=== PATIENT | female | born 1955 | race Caucasian/White ===

== ENCOUNTER → 2016-11-29 | Outpatient (CLI) | payer BC ==
[2016-11-08 13:38] VITALS: BP 135/81
[~2016-11-29] MED LIST: ASPI-482 PO; BUTA1CAP29 PO; CALC-274 PO; CEPH-263 PO; CLOP75TA27 PO; CONTRAST GIVEN MC PRN; DOCU-27 PO; FLUO40CA9 PO; GEMF600T PO; HYDR-2762 PO; HYDR-963 PO; IOHEXOL 240 MG/ML 50ML VIAL. PO ONE; IOHEXOL 300 MG/ML 75 ML VIAL IV ONE; IPRA4AER IH; METH-38 PO; OMEP20CA5 PO; OXYB10TA PO; PRAV10TA2 PO; TRAZ150T55 PO
--- NOTE | 2016-11-29 12:30 | RAD ---
Indication antiphospholipid antibody syndrome. Contrast imaging through the chest abdomen and pelvis was performed. Both IV and oral contrast were administered. 75 cc of Omnipaque 300 was administered intravenously.. No prior CT imaging of the chest is available. The abdomen and pelvis are compared to an examination 05/24/2011. CT chest: Findings The thoracic aorta appears unremarkable. No definite large central pulmonary emboli are seen. There is no significant hilar or mediastinal adenopathy. There is a nodule off the isthmus of the thyroid. Nonemergent ultrasound is suggested for additional evaluation. An acute parenchymal infiltrate in either lung is not seen. Underlying emphysematous changes are noted. A dominant soft tissue mass is not seen CT abdomen and pelvis: Findings. The liver and spleen appear unremarkable. Clips are noted in the gallbladder fossa. The pancreas adrenal glands and kidneys appear unremarkable. A focal mass or inflammatory process in the abdomen is not seen. No focal mass inflammatory process or significant finding is seen in the pelvis. IMPRESSION: No acute finding seen in the chest, abdomen or pelvis. Underlying emphysematous changes noted. Thyroid nodule. Nonemergent ultrasound should be considered for additional evaluation PQRS Compliance Statement: One or more of the following individualized dose reduction techniques were utilized for this examination: 1. Automated exposure control 2. Adjustment of the mA and/or kV according to patient size 3. Use of iterative reconstruction technique
== END | disposition home or self-care (01) ==
LOC: CT 09:52
PROVIDERS: ATTEND Internal Medicine Hematology & Oncology
DX: D68.61 Antiphospholipid syndrome (principal); E04.1 Nontoxic single thyroid nodule; R05 Cough; R06.02 Shortness of breath; R10.30 Lower abdominal pain, unspecified; R53.83 Other fatigue; R07.89 Other chest pain; J43.8 Other emphysema
CPT/HCPCS: 71260; 74177; Q9966; Q9967

== ENCOUNTER → 2017-02-21 | Outpatient (CLI) | payer BC ==
[2016-11-08 13:38] VITALS: BP 135/81
[~2017-02-21] MED LIST changes: -CONTRAST GIVEN MC PRN; -IOHEXOL 240 MG/ML 50ML VIAL. PO ONE; -IOHEXOL 300 MG/ML 75 ML VIAL IV ONE
--- NOTE | 2017-02-21 13:16 | RAD ---
Cervical spine, 2 views, 02/21/2017: History: Cervical radiculopathy There is a surgical plate present anteriorly at the C5-6 level attached to those 2 vertebral bodies via 2 screws at each level. There is a radiopaque disc spacer at the C5-6 level. The vertebral alignment through this region appears to be anatomic. There are moderate scattered spurs. There are moderate degenerative changes involving scattered facet joints bilaterally. No fracture or destructive bony lesion is seen. IMPRESSION: 1. Moderate multilevel degenerative change. 2. Previous anterior spinal fusion and instrumentation at C5-6. 3. No acute bony abnormality is detected.
--- NOTE | 2017-02-21 14:21 | RAD ---
MR CERVICAL SPINE HISTORY:NECK PAIN WITH RIGHT SHOULDER PAIN X 5 MONTHS, HX OF CERVICAL FUSION, PRIOR MRIReason: L SHOULDER MRI ARTHRO/L SHOULDER IMPINGEMENT / Spl. Instructions: / History: Comparison: 12/20/2011 Technique: Sagittal T2, sagittal STIR, sagittal T1, and axial gradient echo imaging was obtained of the cervical spine. FINDINGS: There has been ACDF at C5-C6. Alignment and curvature are within normal limits. Cord is normal in caliber with no signal abnormality identified. Vertebral body heights are maintained. Bone marrow signal is normal. Visualized soft tissues of the neck demonstrates a incompletely evaluated left thyroid mass that measures at least 1.8 centimeters in size. At C2-3 there is no spinal stenosis. At C3-4 there is no spinal stenosis. At C4-5 there is no spinal stenosis. At C5-6 there is anterior fusion. There is no spinal stenosis. At C6-7 there is no spinal stenosis. At C7-T1 there is no spinal stenosis. Impression: - ACDF C5-C6 with normal alignment. There is no cord signal abnormality or canal stenosis. - There is a 1.8 centimeter left thyroid mass. Thyroid ultrasound is recommended. Electronically signed by: Nahum Dan (Feb 21, 2017 14:19:53)
== END | disposition home or self-care (01) ==
LOC: MRI 12:34
PROVIDERS: ATTEND Neurological Surgery
DX: M47.22 Other spondylosis with radiculopathy, cervical region (principal); M75.42 Impingement syndrome of left shoulder
CPT/HCPCS: 72040; 72141

== ENCOUNTER → 2017-07-16 | Outpatient (CLI) | payer BC ==
[2016-11-08 13:38] VITALS: BP 135/81
[~2017-07-16] MED LIST changes: -CLOP75TA27 PO; +CLOP75TA57 PO; +DOCU-109 PO; -DOCU-27 PO; +TRAZ150T49 PO; -TRAZ150T55 PO
--- NOTE | 2017-07-16 14:10 | KCIC ---
SHOULDER 2+V RIGHT History: Repetitive use, pain for 4 weeks, loss of range of motion Comparison: None. Findings: 3 views of the right shoulder are submitted. No acute fracture or dislocation is identified. Mineralization is appropriate for age Impression: 1. No acute osseous abnormality is identified of the right shoulder. Electronically signed by: Jackson Steel MD (07/16/2017 2:06 PM) [id number]
== END | disposition home or self-care (01) ==
LOC: KCIC 12:32
PROVIDERS: ATTEND Internal Medicine
DX: M25.511 Pain in right shoulder (principal)
CPT/HCPCS: 73030

== ENCOUNTER → 2017-08-01 | Day surgery (SDC) | payer BC ==
[~2017-08-01] MED LIST changes: +ALEN70TA5 PO; +ALPR0.254 PO; +HYDROmorphone 2 MG/ML VIAL IV PRN; +IV RINGERS,LACTATED 1000ML 1,000 ML IV SCH; +LEXAPRO20 MG PO; +LIDOCAINE 1% PF 2 ML VIAL. ID PRN; +LIDOCAINE 2% PF Vial for OR 5 ML VIAL. ONE; +MORPHINE SULFATE 2 MG/ML DISP.SYRIN. IV PRN; +ONDA4TAB10 SL; +ONDANSETRON PF 4 MG/2 ML VIAL. IV PRN; +PROCHLORPERAZINE 10 MG/2 ML VIAL. IV PRN; +PROPOFOL 20 ML IV ONE; +fentaNYL PF VIAL 100 MCG/2 ML VIAL IV PRN
[2017-08-01 08:25] VITALS: BP 138/79
--- NOTE | 2017-08-01 09:41 | HP ---
ADMIT DATE: 08/01/2017 REASON FOR CONSULTATION: Recurrent dysphagia. HISTORY OF PRESENT ILLNESS: A 62-year-old female whose past medical history is significant for hyperlipidemia, history of colon polyps, gastroesophageal reflux disease, hypertension, COPD, history of TIA with the same recurrent dysphagia for mainly solids in the subcervical location. She is, of note, taking Fosamax weekly and is also on Plavix, which has been held for the past 48 hours, but no change in weight or appetite. No significant heartburn. She is otherwise without additional complaints, with previous dilatations having helped in the past. PAST MEDICAL HISTORY: TIA, COPD, hyperlipidemia, esophageal stricture. ALLERGIES: PENICILLIN, TETRACYCLINE, CODEINE. MEDICATIONS: Include Fosamax, Keflex, Plavix, Lexapro, Combivent, oxybutynin, pravastatin and trazodone. PAST SURGICAL HISTORY: Status post appendectomy, cholecystectomy, hysterectomy, tonsillectomy, joint replacement surgery and carpal tunnel surgery. REVIEW OF SYSTEMS: Per records. PHYSICAL EXAMINATION: GENERAL: Reveals a well-nourished, well-developed female who is alert, cooperative, in mild distress. VITAL SIGNS: Temperature is 98.4, pulse 86, respirations 20. HEENT: Reveals normocephalic and atraumatic head. Pupils and extraocular muscles not tested. Sclerae anicteric. NECK: Supple. LUNGS: Clear. CARDIOVASCULAR: Reveals an S1, S2 without S3, S4 or appreciable murmur. ABDOMEN: Soft abdomen, normal bowel sounds, without appreciable hepatosplenomegaly. EXTREMITIES: Reveals no cyanosis, clubbing or edema. IMPRESSION: Dysphagia, most likely secondary to recurrent Schatzki's ring, eosinophilic esophagitis, achalasia, presbyesophagus Dorsey's certainly on the differential as well as eosinophilic esophagitis. Therefore, recommend upper endoscopy, possible biopsy and dilatation. Risks and benefits of procedure including risk of perforation were discussed with the patient who is willing to proceed at this time. AURA BROWN MD DR: MARYJO/vu JOB#: [id number] / [id number]
== END | disposition home or self-care (01) ==
LOC: ENDOS 06:32
PROVIDERS: ATTEND Internal Medicine Gastroenterology
DX: K22.2 Esophageal obstruction (principal); K29.50 Unspecified chronic gastritis without bleeding; E78.00 Pure hypercholesterolemia, unspecified; I10 Essential (primary) hypertension; J44.9 Chronic obstructive pulmonary disease, unspecified; K21.9 Gastro-esophageal reflux disease without esophagitis; F32.9 Major depressive disorder, single episode, unspecified; M19.91 Primary osteoarthritis, unspecified site; Z86.39 Personal history of other endocrine, nutritional and metabolic disease; Z86.69 Personal history of other diseases of the nervous system and sense organs; Z86.73 Personal history of transient ischemic attack (TIA), and cerebral infarction without residual deficits; Z87.39 Personal history of other diseases of the musculoskeletal system and connective tissue; Z90.49 Acquired absence of other specified parts of digestive tract; Z90.710 Acquired absence of both cervix and uterus; Z96.698 Presence of other orthopedic joint implants; Z72.89 Other problems related to lifestyle; Z72.0 Tobacco use; Z88.6 Allergy status to analgesic agent; Z88.1 Allergy status to other antibiotic agents; Z88.0 Allergy status to penicillin; Z88.8 Allergy status to other drugs, medicaments and biological substances
CPT/HCPCS: 43235; 43450; J2704; J2001

== ENCOUNTER → 2017-09-08 | Outpatient (CLI) | payer BC ==
[2017-08-01 08:25] VITALS: BP 138/79
[~2017-09-08] MED LIST changes: -HYDROmorphone 2 MG/ML VIAL IV PRN; -IV RINGERS,LACTATED 1000ML 1,000 ML IV SCH; -LIDOCAINE 1% PF 2 ML VIAL. ID PRN; -LIDOCAINE 2% PF Vial for OR 5 ML VIAL. ONE; -MORPHINE SULFATE 2 MG/ML DISP.SYRIN. IV PRN; -ONDA4TAB10 SL; -ONDANSETRON PF 4 MG/2 ML VIAL. IV PRN; -PROCHLORPERAZINE 10 MG/2 ML VIAL. IV PRN; -PROPOFOL 20 ML IV ONE; -fentaNYL PF VIAL 100 MCG/2 ML VIAL IV PRN
--- NOTE | 2017-09-08 16:08 | KCIC ---
MR of the right shoulder Indication: Right shoulder pain. No specific injury. Technique: Standard multiplanar sequences are obtained. Findings: Acromioclavicular joint: Mildly degenerative. No significant undersurface mass effect. Rotator cuff: Mild thickening and increased signal compatible with tendinosis. No measurable rotator cuff defect or tear. No significant subdeltoid bursal fluid. Glenohumeral cartilage: Mild chondromalacia and degenerative change. Fluid: Small joint effusion. Labrum: Tear of the superior labrum. Biceps tendon: Tendinosis. Bones: No lesion or acute fracture. Soft tissue: No acute findings. Impression: 1. Superior labral tear. 2. Rotator cuff tendinosis without measurable rotator cuff tear. 3. Small joint effusion. Electronically signed by: Cipriano Mena MD (09/08/2017 4:05 PM) [facility]
== END | disposition home or self-care (01) ==
LOC: KCIC MRI 14:35
PROVIDERS: ATTEND Orthopaedic Surgery
DX: S43.439A Superior glenoid labrum lesion of unspecified shoulder, initial encounter (principal); M25.40 Effusion, unspecified joint
CPT/HCPCS: 73221

== ENCOUNTER 2017-11-04 12:09 | Emergency (ER) | payer BC ==
[2017-11-04 13:41] LABS: ADD MAN DIFF? NO
[2017-11-04 13:44] LABS: BASO # 0.1 x10^3/uL (0.0-0.2); BASO % 1 % (0-3); EOS % 1 % (0-3); HEMOGLOBIN 14.6 g/dL (12.0-15.5); LYMPH # 1.7 x10^3/uL (1.0-4.8); LYMPH % 27 % (24-48); MEAN CORPUSCULAR HEMOGLOBIN 27 pg (25-35); MEAN CORPUSCULAR HGB CONC 33 g/dL (31-37); MEAN CORPUSCULAR VOLUME 83 fL (79-100); MONO % 8 % (0-9); NEUT % 63 % (31-73); PLATELET COUNT 186 x10^3/uL (140-400); RED BLOOD COUNT 5.33 x10^6/uL (3.50-5.40); RED CELL DISTRIBUTION WIDTH 15.1 % (11.5-14.5); WHITE BLOOD COUNT 6.3 x10^3/uL (4.0-11.0)
[2017-11-04] MEDS: ONDANSETRON PF 4 MG/2 ML VIAL. IV (13:44)
[2017-11-04] MEDS: ACETAMINOPHEN 500 MG TABLET PO (13:44)
[2017-11-04] MEDS: IV NORMAL SALINE 1000ML BAG 1,000 ML IV (13:48)
[2017-11-04] MEDS: fentaNYL PF VIAL 100 MCG/2 ML VIAL IV (13:49)
[2017-11-04 14:02] LABS: INR 1.1 (0.8-1.1); PROTHROMBIN TIME PATIENT 13.3 SEC (11.7-14.0)
[2017-11-04 14:24] LABS: ANION GAP 11 (6-14); BLOOD UREA NITROGEN 15 mg/dL (7-20); CALCIUM 8.4 mg/dL (8.5-10.1); CARBON DIOXIDE 26 mmol/L (21-32); CHLORIDE 106 mmol/L (98-107); CREATININE 0.7 mg/dL (0.6-1.0); GFR 85.1; GLUCOSE 95 mg/dL (70-99); POTASSIUM 3.6 mmol/L (3.5-5.1); SODIUM 143 mmol/L (136-145)
[2017-11-04 14:30] LABS: ALK PHOS 49 U/L (46-116); ALT (SGPT) 22 U/L (14-59); AST (SGOT) 19 U/L (15-37); DIRECT BILIRUBIN 0.1 mg/dL (0.0-0.2); MAGNESIUM 1.6 mg/dL (1.8-2.4); TOTAL BILIRUBIN 0.3 mg/dL (0.2-1.0); TOTAL PROTEIN 6.4 g/dL (6.4-8.2)
[2017-11-04 14:33] LABS: TROPONINI < 0.017 ng/mL (0.000-0.055)
[2017-11-04 14:40] LABS: CKMB INDEX 1.5 % (0-4); CKMB MASS 1.9 ng/mL (0.0-3.6); CREATINE KINASE 129 U/L (26-192)
[2017-11-04 14:40] LABS: NT-PRO BNP 166 pg/mL (0-124)
[2017-11-04 15:53] LABS: BILIRUBIN,URINE NEGATIVE (NEG); GLUCOSE,URINE NEGATIVE (NEG); NITRITE,URINE NEGATIVE (NEG); PROTEIN,URINE NEGATIVE (NEG-TRACE)
[2017-11-04 15:55] LABS: BARBITURATES NEG (NEG); BENZODIAZEPINES NEG (NEG); CANNABINOIDS NEG (NEG); COCAINE NEG (NEG); METHADONE NEG (NEG); OPIATES NEG (NEG); PHENCYCLIDINE NEG (NEG)
[2017-11-04 16:01] LABS: ETHANOL, URINE NEG (NEG)
[2017-11-04 16:02] LABS: RBC,URINE OCC /HPF (0-2)
[2017-11-04 16:03] LABS: BACTERIA,URINE 0 /HPF (0-FEW); SQUAMOUS EPITHELIAL CELL,UR FEW /LPF; WBC,URINE 0 /HPF (0-4)
== END 2017-11-04 16:51 | disposition home or self-care (01) ==
LOC: ER 16:51
DX: R11.2 Nausea with vomiting, unspecified (principal); R09.81 Nasal congestion; R50.9 Fever, unspecified; M79.1 Myalgia; E78.00 Pure hypercholesterolemia, unspecified; M81.0 Age-related osteoporosis without current pathological fracture; G89.29 Other chronic pain; Z90.710 Acquired absence of both cervix and uterus; Z88.0 Allergy status to penicillin; Z86.73 Personal history of transient ischemic attack (TIA), and cerebral infarction without residual deficits; Z88.1 Allergy status to other antibiotic agents; Z88.5 Allergy status to narcotic agent
CPT/HCPCS: 36415; 80048; 80076; 80307; 81001; 82553; 83690; 83735; 83880; 84484; 85025; 85610; 93005; 96361; 96374; 96375; 99285-25; J2405; J3010; J7030

== ENCOUNTER → 2017-12-17 | Outpatient (CLI) | payer BC | END | disposition home or self-care (01) | LOC: KCIC MAMMO 10:49 | DX: Z12.31 Encounter for screening mammogram for malignant neoplasm of breast (principal); Z13.820 Encounter for screening for osteoporosis; M85.88 Other specified disorders of bone density and structure, other site; M81.0 Age-related osteoporosis without current pathological fracture; Z78.0 Asymptomatic menopausal state | CPT/HCPCS: 77063; 77067; 77080 ==

== ENCOUNTER → 2018-01-14 | Outpatient (CLI) | payer BC | END | disposition home or self-care (01) | LOC: KCIC US 13:44 | DX: I65.29 Occlusion and stenosis of unspecified carotid artery (principal); Z86.73 Personal history of transient ischemic attack (TIA), and cerebral infarction without residual deficits | CPT/HCPCS: 93880 ==

== ENCOUNTER → 2018-03-04 | Outpatient (CLI) | payer BC | END | disposition home or self-care (01) | LOC: KCIC MRI 08:35 | DX: M51.16 Intervertebral disc disorders with radiculopathy, lumbar region (principal); M48.061 Spinal stenosis, lumbar region without neurogenic claudication; I10 Essential (primary) hypertension; E78.00 Pure hypercholesterolemia, unspecified | CPT/HCPCS: 72148 ==

== ENCOUNTER → 2018-05-05 | Outpatient (CLI) | payer BC ==
[~2018-05-05] MED LIST changes: -ALEN70TA5 PO; -ALPR0.254 PO; -ASPI-482 PO; -BUTA1CAP29 PO; -CALC-274 PO; -CEPH-263 PO; -CLOP75TA57 PO; -DOCU-109 PO; -FLUO40CA9 PO; -GEMF600T PO; -HYDR-2762 PO; -HYDR-963 PO; +IOHEXOL 180 MG/ML 10 ML VIAL.; -IPRA4AER IH; -LEXAPRO20 MG PO; +LIDOCAINE 1% PF 2 ML VIAL.; -METH-38 PO; -OMEP20CA5 PO; -OXYB10TA PO; -PRAV10TA2 PO; -TRAZ150T49 PO; +methylPREDNISolone ACETATE 40 MG/ML VIAL.; +methylPREDNISolone ACETATE 80 MG/ML VIAL.
== END | disposition home or self-care (01) ==
LOC: PNCL 13:02
DX: M51.16 Intervertebral disc disorders with radiculopathy, lumbar region (principal); F17.210 Nicotine dependence, cigarettes, uncomplicated; J44.9 Chronic obstructive pulmonary disease, unspecified; M19.90 Unspecified osteoarthritis, unspecified site; M48.061 Spinal stenosis, lumbar region without neurogenic claudication; Z88.0 Allergy status to penicillin; Z88.5 Allergy status to narcotic agent; Z88.1 Allergy status to other antibiotic agents
CPT/HCPCS: 62323; J1030; J1040; Q9965

== ENCOUNTER → 2018-05-26 | Outpatient (CLI) | payer BC | END | disposition home or self-care (01) | LOC: PNCL 13:17 | DX: M51.16 Intervertebral disc disorders with radiculopathy, lumbar region (principal); M48.061 Spinal stenosis, lumbar region without neurogenic claudication; Z88.0 Allergy status to penicillin; Z88.1 Allergy status to other antibiotic agents; Z88.5 Allergy status to narcotic agent; Z98.42 Cataract extraction status, left eye; Z98.41 Cataract extraction status, right eye; Z96.1 Presence of intraocular lens; Z98.890 Other specified postprocedural states; Z86.73 Personal history of transient ischemic attack (TIA), and cerebral infarction without residual deficits; E78.00 Pure hypercholesterolemia, unspecified; I10 Essential (primary) hypertension; J44.9 Chronic obstructive pulmonary disease, unspecified; Z87.01 Personal history of pneumonia (recurrent); Z86.010 Personal history of colon polyps; Z90.49 Acquired absence of other specified parts of digestive tract; K21.9 Gastro-esophageal reflux disease without esophagitis; Z90.710 Acquired absence of both cervix and uterus; Z90.79 Acquired absence of other genital organ(s); Z90.721 Acquired absence of ovaries, unilateral; M85.80 Other specified disorders of bone density and structure, unspecified site; Z96.693 Finger-joint replacement, bilateral; F32.9 Major depressive disorder, single episode, unspecified; F19.10 Other psychoactive substance abuse, uncomplicated; Z72.89 Other problems related to lifestyle; Z85.21 Personal history of malignant neoplasm of larynx; F17.210 Nicotine dependence, cigarettes, uncomplicated; M19.90 Unspecified osteoarthritis, unspecified site | CPT/HCPCS: 62323; J1030; J1040; Q9965 ==

== ENCOUNTER → 2018-05-27 | Day surgery (SDC) | payer BC ==
[~2018-05-27] MED LIST changes: -IOHEXOL 180 MG/ML 10 ML VIAL.; -LIDOCAINE 1% PF 2 ML VIAL.; +LIDOCAINE 1% PF 2 ML VIAL. ID; +LIDOCAINE 2% PF Vial for OR 5 ML VIAL.; +MORPHINE SULFATE 2 MG/ML DISP.SYRIN. IV; +ONDANSETRON PF 4 MG/2 ML VIAL. IV; +PROCHLORPERAZINE 10 MG/2 ML VIAL. IV; +PROPOFOL 20 ML IV; +fentaNYL PF VIAL 100 MCG/2 ML VIAL IV; -methylPREDNISolone ACETATE 40 MG/ML VIAL.; -methylPREDNISolone ACETATE 80 MG/ML VIAL.
[2018-05-27] MEDS: IV RINGERS,LACTATED 1000ML 1,000 ML IV (06:36)
== END | disposition home or self-care (01) ==
LOC: ENDOS 06:02
DX: K22.2 Esophageal obstruction (principal); K29.50 Unspecified chronic gastritis without bleeding; B37.81 Candidal esophagitis; Z86.010 Personal history of colon polyps; I10 Essential (primary) hypertension; J44.9 Chronic obstructive pulmonary disease, unspecified; Z86.73 Personal history of transient ischemic attack (TIA), and cerebral infarction without residual deficits; Z88.0 Allergy status to penicillin; Z88.5 Allergy status to narcotic agent; Z88.1 Allergy status to other antibiotic agents; Z79.82 Long term (current) use of aspirin; Z79.899 Other long term (current) drug therapy; Z72.89 Other problems related to lifestyle; Z87.891 Personal history of nicotine dependence; Z90.49 Acquired absence of other specified parts of digestive tract; Z90.710 Acquired absence of both cervix and uterus; Z98.890 Other specified postprocedural states; Z98.42 Cataract extraction status, left eye; Z98.41 Cataract extraction status, right eye; Z96.1 Presence of intraocular lens; E78.00 Pure hypercholesterolemia, unspecified; Z87.01 Personal history of pneumonia (recurrent); Z90.79 Acquired absence of other genital organ(s); Z90.721 Acquired absence of ovaries, unilateral; M19.90 Unspecified osteoarthritis, unspecified site; F32.9 Major depressive disorder, single episode, unspecified; Z96.693 Finger-joint replacement, bilateral
CPT/HCPCS: 43239; 88305; 88312; J2001; J2704

== ENCOUNTER → 2018-07-01 | Outpatient (CLI) | payer BC ==
[2018-05-27 07:55] VITALS: BP 125/75
[~2018-07-01] MED LIST changes: +ALEN70TA5 PO; +ALPR0.25 PO; +ALPR0.254 PO; +ASPI-482 PO; +ASPI81TA50 PO; +BARIUM SULFATE 60% 355 ML SUSP PO ONE; +BUTA1CAP29 PO; +CA C1TAB63 PO; +CALC-274 PO; +CEPH-263 PO; +CLOP75TA57 PO; +CONTRAST GIVEN. MC PRN; +DOCU-109 PO; +FLUO40CA9 PO; +GEMF600T PO; +HYDR-2762 PO; +HYDR-963 PO; +HYDR25CA PO; +IOHEXOL 300 MG/ML 50 ML VIAL. IJ ONE; +IPRA4AER IH; +LEXAPRO20 MG PO; -LIDOCAINE 1% PF 2 ML VIAL. ID; -LIDOCAINE 2% PF Vial for OR 5 ML VIAL.; +METH-38 PO; -MORPHINE SULFATE 2 MG/ML DISP.SYRIN. IV; +OMEP20CA5 PO; +ONDA4TAB10 SL; -ONDANSETRON PF 4 MG/2 ML VIAL. IV; +OXYB10TA PO; +OXYC-323 PO; +PANT40GR PO; +PRAV10TA2 PO; +PROAIR HFA8.5 GM INH; -PROCHLORPERAZINE 10 MG/2 ML VIAL. IV; -PROPOFOL 20 ML IV; +RIVA15TA PO; +TRAZ-86 PO; +TRAZ150T49 PO; -fentaNYL PF VIAL 100 MCG/2 ML VIAL IV
--- NOTE | 2018-07-06 09:19 | RAD ---
Sitzmarks exam, 07/01/2018: History: Constipation The preliminary KUB demonstrates surgical clips in the right upper quadrant and right upper pelvis. There is gas and stool scattered throughout the colon in a nonspecific pattern. Aortoiliac calcific plaquing is present. Following oral ingestion of the Sitzmarks capsule an additional KUB was obtained on 07/06/2018. The majority of the Sitzmarks markers have cleared. There are 3 residual Sitzmarks markers projected over the sigmoid region. This is considered to be normal exam. A moderate amount stool is again noted in the colon.
== END | disposition home or self-care (01) ==
LOC: RAD 08:02
PROVIDERS: ATTEND Internal Medicine Gastroenterology
DX: K59.09 Other constipation (principal); I10 Essential (primary) hypertension; E78.5 Hyperlipidemia, unspecified; E78.00 Pure hypercholesterolemia, unspecified; J44.9 Chronic obstructive pulmonary disease, unspecified; K21.9 Gastro-esophageal reflux disease without esophagitis; G43.909 Migraine, unspecified, not intractable, without status migrainosus; Z79.899 Other long term (current) drug therapy; Z87.01 Personal history of pneumonia (recurrent); Z87.891 Personal history of nicotine dependence; Z85.21 Personal history of malignant neoplasm of larynx; Z86.39 Personal history of other endocrine, nutritional and metabolic disease; Z87.39 Personal history of other diseases of the musculoskeletal system and connective tissue; Z86.69 Personal history of other diseases of the nervous system and sense organs; Z86.010 Personal history of colon polyps; Z90.721 Acquired absence of ovaries, unilateral; Z90.49 Acquired absence of other specified parts of digestive tract; Z90.79 Acquired absence of other genital organ(s); Z88.0 Allergy status to penicillin; Z88.5 Allergy status to narcotic agent; Z88.6 Allergy status to analgesic agent; Z88.1 Allergy status to other antibiotic agents; Z88.8 Allergy status to other drugs, medicaments and biological substances; Z88.2 Allergy status to sulfonamides; Z80.41 Family history of malignant neoplasm of ovary; Z83.3 Family history of diabetes mellitus; Z80.0 Family history of malignant neoplasm of digestive organs
CPT/HCPCS: 74250

== ENCOUNTER → 2018-09-16 | Outpatient (CLI) | payer BC ==
[~2018-09-16] MED LIST changes: -BARIUM SULFATE 60% 355 ML SUSP PO ONE; +IOHEXOL 180 MG/ML 10 ML VIAL. IT ONE; -IOHEXOL 300 MG/ML 50 ML VIAL. IJ ONE; +LIDOCAINE WITH 8.4% SOD BICARB 3 ML DISP.SYRIN. INJ ONE
[2018-09-16 09:34] VITALS: BP 150/78
[2018-09-16 09:49] LABS: CREATININE 0.9 mg/dL (0.6-1.0); GFR 63.4
--- NOTE | 2018-09-18 08:26 | RAD ---
Lumbar myelogram, 09/16/2018: History: Back and right lower extremity pain Under local anesthesia, aseptic conditions and fluoroscopic guidance a lumbar puncture was performed at the upper L3 level utilizing a 25-gauge Brinda spinal needle. Good clear CSF flow was obtained following which 14 cc of Omnipaque 180 was injected into the thecal sac. The spinal needle was then removed and hemostasis obtained. Appropriate lumbar imaging was performed. 2.5 minutes of fluoroscopy time was utilized. 13 fluoroscopic spot images were recorded. The patient tolerated the procedure well and was sent to CT in good condition. The following findings are delineated on the myelogram: 1. There is a moderate anterior extradural defect at L3-4 and mild anterior extradural defects at L2-3 and L4-5 in the upright position. No high-grade spinal stenosis was seen. 2. No significant subluxation or instability is evident on upright flexion and extension views. 3. There is symmetric opacification of the nerve root sleeves in the lower lumbar spine. CT of the lumbar spine-post myelogram, 09/16/2018: Multidetector CT imaging was performed with multiplanar reconstructions produced. The following findings are delineated: 1. No fracture or destructive bony lesion is seen. 2. There is no significant posterior disc bulge or protrusion at L1-2 and L2-3. The central spinal canal and neural foramina are well preserved at those levels. 3. At L3-4 there is moderate broad-based posterior disc bulging. There are mild degenerative changes involving the facet joints. The thecal sac measures 11 mm in AP diameter at the midline. There is only mild inferior foraminal encroachment bilaterally. 4. No significant posterior disc bulge or protrusion is seen at L4-5. The central spinal canal and neural foramina are well maintained. 5. At L5-S1 there is no significant posterior disc bulge or protrusion. There are mild degenerative changes involving the facet joints. The central spinal canal and neural foramina are well maintained. 6. There is a small rounded sclerotic focus in the inferior lateral aspect of the L3 vertebral body. This appears to have increased in size since 11/29/2016. It was not evident on an old study from 05/24/2011. 6. Moderate aortoiliac calcific plaquing is present. IMPRESSION: 1. Mild scattered degenerative changes as described above. 2. Moderate posterior disc bulging at L3-4 without significant central spinal stenosis. 3. Small sclerotic lesion in the L3 vertebral body as described above. A radionuclide bone scan is suggested in excluding an active process such as blastic metastatic disease. PQRS Compliance Statement: One or more of the following individualized dose reduction techniques were utilized for this examination: 1. Automated exposure control 2. Adjustment of the mA and/or kV according to patient size 3. Use of iterative reconstruction technique DICTATED and SIGNED BY: CHASITY REYNOLDS MD DATE: 09/16/18 1036 MTDD
== END | disposition home or self-care (01) ==
LOC: RAD 09:39
PROVIDERS: ATTEND Neurological Surgery
DX: M51.36 Other intervertebral disc degeneration, lumbar region (principal); M89.8X8 Other specified disorders of bone, other site
CPT/HCPCS: 36415; 72132; 72265; 82565; 84520; Q9965

== ENCOUNTER → 2018-09-25 | Outpatient (CLI) | payer BC ==
[2018-09-16 09:34] VITALS: BP 150/78
[~2018-09-25] MED LIST changes: -CONTRAST GIVEN. MC PRN; +HYDR-3135 PO; -HYDR-963 PO; -IOHEXOL 180 MG/ML 10 ML VIAL. IT ONE; -LIDOCAINE WITH 8.4% SOD BICARB 3 ML DISP.SYRIN. INJ ONE
--- NOTE | 2018-09-25 17:07 | RAD ---
Whole body bone scan HISTORY: Sclerotic bone lesion of the lower back COMPARISON: CT lumbar spine exam September 16, 2018 FINDINGS: Whole-body bone scan was performed. Patient was injected with 25 mCi technetium 99m MDP. There is no asymmetric radiotracer activity of the lumbar spine. There is a small sclerotic focus on CT of the L3 vertebral body, small size which may be difficult to visualize on bone scan although there was no significant marrow edema at this location on March 04, 2018 MRI lumbar spine exam. There is other radiotracer activity of the bilateral shoulders, knees, and ankles likely degenerative in etiology. There is a small focus of increased radiotracer activity of the left mid cervical spine region in the region of facet articulation. There is a small focus of increased radiotracer activity of the anterior right rib margin, probably the fourth rib. IMPRESSION: 1. There is no asymmetric radiotracer activity of the lumbar spine. Small sclerotic focus as seen on CT of the L3 vertebral body may be difficult to visualize on bone scan due to small size although there was also no marrow edema at this location on previous MRI lumbar spine exam. There is small focus of increased radiotracer activity of the left mid cervical region in the region of facets more likely to be reactive in etiology. Radiotracer activity of the joints bilaterally is likely degenerative in etiology. Small focus of increased radiotracer activity at the margin of right anterior rib is nonspecific, could be due to sequela of trauma or degenerative change, less likely mass. Electronically signed by: Jackson Steel MD (09/25/2018 5:04 PM) [facility]
== END | disposition home or self-care (01) ==
LOC: NM 14:10
PROVIDERS: ATTEND Neurological Surgery
DX: M51.86 Other intervertebral disc disorders, lumbar region (principal)
CPT/HCPCS: 78306; 96374; A9503

== ENCOUNTER → 2018-10-09 | Outpatient (CLI) | payer BC ==
[2018-09-16 09:34] VITALS: BP 150/78
[~2018-10-09] MED LIST changes: -HYDR-2762 PO; +HYDR-2765 PO; -OXYC-323 PO; +OXYC1TAB15 PO
--- NOTE | 2018-10-09 14:37 | RAD ---
Chest, 2 views, 10/09/2018: HISTORY: Shortness of breath, preop evaluation for back surgery The heart size and pulmonary vascularity are normal. There is calcific plaquing of the aorta. No pulmonary infiltrate is seen. There is no evidence of pleural fluid. There are mild scattered degenerative changes in the spine. A surgical plate and screws is evident in the lower cervical region. A right shoulder prosthesis is noted. IMPRESSION: No acute cardiopulmonary abnormality is detected. Electronically signed by: Silver Humphreys MD (10/09/2018 2:33 PM) [facility]
== END | disposition home or self-care (01) ==
LOC: RAD 11:34
PROVIDERS: ATTEND Internal Medicine Pulmonary Disease
DX: Z01.818 Encounter for other preprocedural examination (principal); R06.02 Shortness of breath
CPT/HCPCS: 71046

== ENCOUNTER → 2018-10-16 | Outpatient (CLI) | payer BC ==
[2018-09-16 09:34] VITALS: BP 150/78
[~2018-10-16] MED LIST changes: +FERR325T14 PO; +LUBI8CAP4 PO; +MONT10TA9 PO; +TRIA10.8 NS
--- NOTE | 2018-10-17 09:22 | RAD ---
CT chest without contrast TECHNIQUE: Helical multiplanar reconstructed noncontrast CT imaging of the chest was acquired. COMPARISON: Chest x-ray October 09, 2018. HISTORY: Shortness of breath, lung cancer screening, tobacco smoker. FINDINGS: Heart size normal. Extensive calcified plaque of the thoracic aorta and coronary arteries. 15 mm hypodense thyroid isthmus nodule. Esophagus and pulmonary vessels are unremarkable. No adenopathy in the chest. Centrilobular pulmonary emphysema. No pulmonary opacities or nodules. No pleural effusions. Right shoulder arthroplasty. IMPRESSION: No acute process. Pulmonary emphysema. Extensive calcified plaque of the thoracic aorta and coronary arteries. Electronically signed by: Igor Schulte MD (10/17/2018 9:18 AM) [facility]
== END | disposition home or self-care (01) ==
LOC: PF 10:09
PROVIDERS: ATTEND Internal Medicine Pulmonary Disease
DX: Z12.2 Encounter for screening for malignant neoplasm of respiratory organs (principal); J43.9 Emphysema, unspecified; Z87.891 Personal history of nicotine dependence
CPT/HCPCS: 71250; 94010; 94729

== ENCOUNTER → 2018-10-21 | Outpatient (CLI) | payer BC ==
[2018-09-16 09:34] VITALS: BP 150/78
--- NOTE | 2018-10-21 14:48 | CARD ---
MR#: [id number] Date of Study: 10/21/2018 Ordering Physician: TOSHA SEGAL, Referring Physician: TOSHA SEGAL, Tech: Nishi Hernandez RDCS APPROVED REPORT INDICATION Dyspnea Pre-Op Reason : Patient complained of shortness of breath PROCEDURE The patient underwent an Exercise Stress Test using the Arjun Protocol. Blood pressure, heart rate, a nd EKG were monitored. An Echocardiogram was performed by performing arts technicians in four stages in quad fashion. At peak stress four se lected images were obtained and placed side by side with resting images for comparison. STRESS ECHO FINDINGS The resting Echocardiogram showed normal left ventricular systolic contractility with an estimated Ej ection Fraction of about 60 %. The Resting Echocardiogram showed normal augmentation of myocardial wall segments using a 16 segment model. The Stress Echocardiogram showed normal augmentation of myocardial wall segments using a 16 segment m lyly. The Stress Echocardiogram left ventricular systolic contractility has an estimated Ejection Fraction of about 65%. Test Type: Exercise Stress Nurse/Tech: ene Flood RN Test Indications: SOA, pre-op clearance Cardiac History and Allergies: See [employer] EMR NKDA Medications: see EMR Medical History: see EMR Resting ECG: SR Resting Heart Rate: 84 bpm Resting Blood Pressure: 92/53mmHg Pretest Chest Pain: None Nurse/Tech Notes Lungs CTA, S1S2 Consent: The procedure was explained to the patient in lay terms. Informed consent was witnessed. Jose Enrique eout was entered into [employer]. History and Stress Test performed by Ene Flood RN Stress Symptoms dyspnea POST EXERCISE Reason for Termination: Reached target heart rate Target HR: 134 Max HR: 154 bpm Exercise duration: 6:30 min:sec, 2 Stage Exercise capacity: 7METs Max Blood Pressure: 154/64mmHg Blood Pressure response to exercise: Normal blood pressure response during stress. Heart Rate response to exercise: normal response Chest Pain: No. Arrhythmia: No. ST Change: No. INTERPRETATION Stress EKG Conclusion: Baseline EKG showed sinus rhythm. No ischemic changes at peak stress. No arr hythmias. Preliminary Notification Critical Value: No <Conclusion> Treadmill exercise stress echocardiogram did not show any evidence of ischemia or infarct. Normal left ventricle systolic function with ejection fraction estimated at 60%. Patient had good activity tolerance. Low risk for cardiac events. Signed by : Noah Hester, Electronically Approved : 10/21/2018 14:47:03
== END | disposition home or self-care (01) ==
LOC: ECHO 12:57
PROVIDERS: ATTEND Internal Medicine Pulmonary Disease
DX: Z01.818 Encounter for other preprocedural examination (principal); R06.02 Shortness of breath
CPT/HCPCS: 93017; 93350

== ENCOUNTER → 2019-01-20 | Outpatient (CLI) | payer BC, OTHER ==
[2018-10-23 13:58] VITALS: BP 109/63
[~2019-01-20] MED LIST changes: +ALBU2.5V8 INH; -ALEN70TA5 PO; +ALEN70TA6 PO; -PROAIR HFA8.5 GM INH; +[UNRECOGNIZED DRUG - OTHER] IH
--- NOTE | 2019-01-20 08:42 | RAD ---
DATE: 01/20/2019 EXAM: DIGITAL SCREEN BILAT W/CAD HISTORY: Routine screening COMPARISON: 12/17/2017 This study was interpreted with the benefit of Computerized Aided Detection (CAD). Breast Density: FATTY The breast parenchyma is primarily fatty replaced. Breast parenchyma level density A. FINDINGS: No new or enlarging breast densities are seen. Benign type calcifications are again noted. No suspicious microcalcifications have developed. IMPRESSION: Stable mammograms without evidence of malignancy. BI-RADS CATEGORY: 1 NEGATIVE RECOMMENDED FOLLOW-UP: 12M 12 MONTH FOLLOW-UP PQRS compliance statement: Patient information was entered into a reminder system with a target due date for the next mammogram. Mammography is a sensitive method for finding small breast cancers, but it does not detect them all and is not a substitute for careful clinical examination. A negative mammogram does not negate a clinically suspicious finding and should not result in delay in biopsying a clinically suspicious abnormality. "Our facility is accredited by the [employer] Mammography Program."
== END | disposition home or self-care (01) ==
LOC: MAMMO 08:01
PROVIDERS: ATTEND Internal Medicine
DX: Z12.31 Encounter for screening mammogram for malignant neoplasm of breast (principal)
CPT/HCPCS: 77067

== ENCOUNTER → 2019-08-05 | Outpatient (CLI) | payer OTHER ==
[2018-10-23 13:58] VITALS: BP 109/63
[~2019-08-05] MED LIST changes: +MONT10TA49 PO; -MONT10TA9 PO; -OXYB10TA PO; +OXYB10TA2 PO
--- NOTE | 2019-08-05 11:48 | KCIC ---
EXAM: Dual energy x-ray absorptiometry (DEXA). HISTORY: Postmenopausal female presents for osteoporosis screening. COMPARISON: 12/17/2017. TECHNIQUE: Dual energy x-ray absorptiometry of the lumbar spine and left hip was performed. Calculation of bone mineral density based on standard deviations above or below the expected young adult normal value (T-score) was completed. FINDINGS: The average bone mineral density in the 1st through 4th lumbar vertebrae is 0.718 g/cmxcm, corresponding with a T-score of -3.0. There has been an 11.8% decrease in density of the lumbar spine compared to the prior study. The average total bone mineral density in the left hip is 0.704 g/cmxcm, corresponding with a T-score of -2.0. There has been a 5.8% decrease in density of the left hip compared to the prior study. IMPRESSION: 1. Osteoporosis measured at the lumbar spine. 2. Osteopenia measured at the left hip. 3. Decrease in bone mineral density compared to the prior study. Note: Definitions established by the World Health Organization: 1. Normal: T-score is -1.0 or above. 2. Osteopenia: T-score is between -1.0 and -2.5 . 3. Osteoporosis: T-score is -2.5 or below. Electronically signed by: Liza Choi MD (08/05/2019 11:45 AM) [place] [id number]
== END | disposition home or self-care (01) ==
LOC: KCIC DEXA 11:04
PROVIDERS: ATTEND Orthopaedic Surgery
DX: M81.8 Other osteoporosis without current pathological fracture (principal); M85.88 Other specified disorders of bone density and structure, other site; Z78.0 Asymptomatic menopausal state
CPT/HCPCS: 77080

== ENCOUNTER → 2019-09-15 | Outpatient (CLI) | payer OTHER ==
[2018-10-23 13:58] VITALS: BP 109/63
[~2019-09-15] MED LIST changes: +GABA600T7 PO; +LUBI24CA7 PO
--- NOTE | 2019-09-15 12:45 | KCIC ---
EXAM: CHEST 2 VIEWS. HISTORY: Dyspnea, cough. COMPARISON: 10/09/2018. FINDINGS: Frontal and lateral views of the chest are obtained. There are emphysematous changes in the apices. There are no confluent infiltrates. There is no pneumothorax or pleural effusion. The heart is not enlarged. There are atherosclerotic calcifications of the aorta. Cholecystectomy clips, cervical fusion and right shoulder arthroplasty changes are noted. IMPRESSION: 1. No confluent infiltrates. Electronically signed by: Oni Lozano MD (09/15/2019 12:42 PM) [facility]
== END | disposition home or self-care (01) ==
LOC: KCIC 12:03
PROVIDERS: ATTEND Internal Medicine
DX: J43.9 Emphysema, unspecified (principal); I70.0 Atherosclerosis of aorta; Z96.611 Presence of right artificial shoulder joint; Z90.49 Acquired absence of other specified parts of digestive tract; Z98.1 Arthrodesis status
CPT/HCPCS: 71046

== ENCOUNTER → 2019-09-22 | Day surgery (SDC) | payer OTHER ==
[~2019-09-22] MED LIST changes: +IV RINGERS,LACTATED 1000ML 1,000 ML IV SCH; +LIDOCAINE 2% PF 5 ML VIAL. ONE; +PROPOFOL 40 ML IV ONE
[2019-09-22 09:22] VITALS: BP 125/68
--- NOTE | 2019-09-23 15:07 | PATHOLOGY ---
[facility] Accession Number: [id number] . 01 Material submitted: . PART A: duodenum - DUODENAL BIOPSY R/O CELIAC PART B: colon - RANDOM COLON BIOPSY . 01 Clinical history: . Anemia A: Rule out celiac . 02 Diagnosis: A. Duodenal biopsies: - No significant pathologic abnormalities. . B. Colonic mucosa, random colon biopsies: -Segments of colonic mucosa showing no significant pathologic abnormalities. - Tubular adenomas (2). ([facility] 09/23/2019) [facility] 09/23/2019 0959 Local . 02 Comment: Sections of the duodenal biopsy reveal multiple segments of duodenal and small intestine mucosa. Where best oriented, the mucosal villi show no sprue-like changes or significant inflammatory changes. Segments of duodenal mucosa show focally prominent submucosal Caprice's glands and a single mucosal-associated lymphoid aggregate. . Sections of the random colon biopsy reveal multiple segments of colonic mucosa which show no evidence of a chronic destructive colitis, lymphocytic colitis, or a collagenous colitis. Two of the biopsy segments are tubular adenomas showing no high-grade dysplasia or evidence of malignancy. ([facility] 09/23/2019) . 02 Electronically signed: . Chandler Donahue MD, Pathologist NPI- [id number] . 01 Gross description: . A. The specimen is received in formalin, labeled "Aicha Yoon, duodenal BX rule out celiac", are several irregular fragments of poe soft tissue measuring 0.8 x 0.7 x 0.1 cm in aggregate. Entirely submitted in A1. . B. The specimen is received in formalin, labeled "Aicha Yoon, random colon BX", are several irregular fragments of poe soft tissue measuring 0.5 x 0.5 x 0.1 cm in aggregate. Entirely submitted in B1. ([facility]; 09/22/2019) [facility] 09/22/2019 1837 Local . 02 Pathologist provided ICD-10: D12.6 . 02 CPT . 181694, [id number] Specimen Comment: A courtesy copy of this report has been sent to [phone], [phone] Specimen Comment: [id number] Specimen Comment: Report sent to / DR MARTIN Performed at: 01 [facility] [address], [place] [id number] MD Stanton Atwood MD Phone: [phone] Performed at: 02 [facility] [address] [place], [place] [id number] MD Chandler Donahue MD Phone: [phone]
== END ==
LOC: ENDOS 07:27
PROVIDERS: ATTEND Internal Medicine Gastroenterology
DX: D50.0 Iron deficiency anemia secondary to blood loss (chronic) (principal); K64.0 First degree hemorrhoids; K31.89 Other diseases of stomach and duodenum; K63.89 Other specified diseases of intestine; G43.909 Migraine, unspecified, not intractable, without status migrainosus; E78.00 Pure hypercholesterolemia, unspecified; J44.9 Chronic obstructive pulmonary disease, unspecified; F17.210 Nicotine dependence, cigarettes, uncomplicated; K21.9 Gastro-esophageal reflux disease without esophagitis; Z86.010 Personal history of colon polyps; K26.9 Duodenal ulcer, unspecified as acute or chronic, without hemorrhage or perforation; Z90.49 Acquired absence of other specified parts of digestive tract; Z86.73 Personal history of transient ischemic attack (TIA), and cerebral infarction without residual deficits; Z98.890 Other specified postprocedural states; Z96.619 Presence of unspecified artificial shoulder joint; Z90.710 Acquired absence of both cervix and uterus
CPT/HCPCS: 43239; 45380; J2001; J2704; 88305

== ENCOUNTER → 2019-10-29 | Outpatient (CLI) | payer OTHER ==
[2019-09-22 09:22] VITALS: BP 125/68
[~2019-10-29] MED LIST changes: +IOHEXOL 240 MG/ML 50ML VIAL. PO ONE; +IOHEXOL 300 MG/ML 100ML VIAL. IV ONE; -IV RINGERS,LACTATED 1000ML 1,000 ML IV SCH; -LIDOCAINE 2% PF 5 ML VIAL. ONE; -PROPOFOL 40 ML IV ONE
--- NOTE | 2019-10-29 16:09 | KCIC ---
CT study of the abdomen and pelvis with contrast Clinical indications: Anemia. Abdominal pain. Constipation. Decreased appetite. TECHNIQUE: After IV infusion of 89 cc of Omnipaque 300, helical CT scanning of the abdomen and pelvis was performed. GI contrast was administered per mouth. PQRS compliance Statement One or more of the following individualized dose reduction techniques were utilized for this study: 1. Automated exposure control 2. Adjustment of the mA and/or kV according to patient size 3. Use of iterative reconstruction technique COMPARISON: November 29, 2016. FINDINGS: The liver and spleen and pancreas are normal. The gallbladder is surgically absent. The extrahepatic bile duct measures 11 mm in caliber which is dilated. This is unchanged from the previous study. No focal aneurysmal dilatation of the abdominal aorta is seen. No enlarged abdominal or pelvic lymphadenopathy is evident. There is moderate fecal retention throughout the colon especially on the right side of the colon. The terminal ileum is unremarkable. The appendix is not visualized. There is postsurgical changes of the base of the cecum consistent with a appendectomy. There is diffuse wall thickening of the stomach. No small bowel obstruction is evident. No free air or free fluid or mesenteric edema is seen. No focal aneurysmal dilatation of the abdominal aorta is seen. No enlarged abdominal or pelvic lymphadenopathy is evident. No lung base consolidation is evident. No lytic process is evident. IMPRESSION: Diffuse wall thickening of the stomach. Chronic dilatation of the extra hepatic biliary duct most likely secondary to the reservoir effect after a cholecystectomy. This is unchanged. Moderate fecal retention within the colon. Electronically signed by: Jose Arcos MD (10/29/2019 4:07 PM) [facility]
== END | disposition home or self-care (01) ==
LOC: KCIC CT 08:05
PROVIDERS: ATTEND Internal Medicine Gastroenterology
DX: K59.00 Constipation, unspecified (principal); D64.9 Anemia, unspecified
CPT/HCPCS: 74177; Q9966; Q9967

== ENCOUNTER → 2019-11-08 | Outpatient (CLI) | payer OTHER ==
[2019-09-22 09:22] VITALS: BP 125/68
[~2019-11-08] MED LIST changes: -IOHEXOL 240 MG/ML 50ML VIAL. PO ONE; -IOHEXOL 300 MG/ML 100ML VIAL. IV ONE
--- NOTE | 2019-11-08 16:54 | KCIC ---
EXAM: Pelvis and left hip, 2 views; left femur, 2 views. HISTORY: Pain. Fall. COMPARISON: None. FINDINGS: A frontal view of the pelvis and frontal and frog-leg views of the left hip and frontal and lateral views of the femur are obtained. There is no acute fracture. There is no dislocation or subluxation. There is no lytic or sclerotic osseous lesion. There is no periosteal reaction. IMPRESSION: No acute osseous finding. Electronically signed by: Liza Choi MD (11/08/2019 4:51 PM) [facility]
--- NOTE | 2019-11-08 16:54 | KCIC ---
EXAM: Pelvis and left hip, 2 views; left femur, 2 views. HISTORY: Pain. Fall. COMPARISON: None. FINDINGS: A frontal view of the pelvis and frontal and frog-leg views of the left hip and frontal and lateral views of the femur are obtained. There is no acute fracture. There is no dislocation or subluxation. There is no lytic or sclerotic osseous lesion. There is no periosteal reaction. IMPRESSION: No acute osseous finding. Electronically signed by: Liza Choi MD (11/08/2019 4:51 PM) [facility]
== END | disposition home or self-care (01) ==
LOC: KCIC 15:15
PROVIDERS: ATTEND Internal Medicine
DX: M25.552 Pain in left hip (principal); R10.2 Pelvic and perineal pain
CPT/HCPCS: 73502; 73552

== ENCOUNTER → 2019-11-12 | Outpatient (CLI) | payer OTHER ==
[2019-09-22 09:22] VITALS: BP 125/68
[~2019-11-12] MED LIST changes: -OXYB10TA2 PO; +OXYB10TA26 PO; +TRAZ-123 PO; -TRAZ-86 PO
--- NOTE | 2019-11-12 17:13 | KCIC ---
Examination: SHOULDER 2+V LEFT History: Left shoulder pain after falling one week ago Comparison/Correlation: None Findings: Total 3 images of the left shoulder were obtained. Acromioclavicular joint is unremarkable. Spurring at the inferior aspect of the glenohumeral joint noted. Nonspecific sclerosis of the left humeral head is small in extent. No fracture or bony destructive findings. Soft tissues are unremarkable. Postoperative cervical spine fusion noted. Impression: No suspicious process. Electronically signed by: Live Beatty MD (11/12/2019 5:10 PM) [facility]
== END | disposition home or self-care (01) ==
LOC: KCIC 14:40
PROVIDERS: ATTEND Internal Medicine
DX: M25.512 Pain in left shoulder (principal); W19.XXXA Unspecified fall, initial encounter; Y93.89 Activity, other specified; Y92.89 Other specified places as the place of occurrence of the external cause; Y99.8 Other external cause status
CPT/HCPCS: 73030

== ENCOUNTER → 2019-12-29 | Outpatient (CLI) | payer OTHER ==
[2019-09-22 09:22] VITALS: BP 125/68
[~2019-12-29] MED LIST changes: +REGADENOSON 0.4 MG/5 ML DISP.SYRIN. IV ONE
--- NOTE | 2019-12-30 13:36 | RAD ---
MR#: [id number] Date of Study: 12/29/2019 Ordering Physician: DANIEL MARCOS, Referring Physician: DANIEL MARCOS, Tech: Tod Pham MBA, RDMS, RVT, RDCS, RTR APPROVED REPORT Patient Location: OUT-PATIENT Indications Claudication:Bilaterally VELOCITY AND DOPPLER WAVEFORM ANALYSIS RIGHT cm/secWaveformSeverity LEFT cm/secWaveform Severity dCFA 116.0BiphasicdCFA 107.0Triphasic Prof Fem Art. 58.0BiphasicProf Fem Art. 80.0Biphasic Fem Art Prox. 100.0TriphasicFem Art Prox. 113.0Triphasic Fem Art Mid. 80.0TriphasicFem Art Mid. 94.0Biphasic Fem Art Dist. 69.0TriphasicFem Art Dist. 74.0Biphasic Pop Art(Fossa) 61.0BiphasicPop Art(AK) 60.0Biphasic WORD PROCESSOR OPERATOR Prox. 84.0BiphasicPTA Prox. 77.0Biphasic WORD PROCESSOR OPERATOR Dist. 101.0BiphasicPTA Dist. 89.0Biphasic Per Art Mid. 42.0BiphasicPer Art Mid. 43.0Biphasic NICOL Prox. 74.0BiphasicATA Prox. 58.0Biphasic DPA 72BiphasicDPA 50Biphasic Findings Mild diffuse intimal hyperplasia and minimal diffuse atherosclerotic plaque noted in the bilateral lo wer extremity arterial vessels. Spectral waveforms and color Doppler evaluation is unremarkable. Velocities are within normal limits. There is three-vessel runoff below the knee. Critical Notification Critical Value: No <Conclusion> 1. No significant bilateral lower extremity arterial disease noted with three-vessel runoff. Signed by : Jearmy Romero, Electronically Approved : 12/29/2019 14:17:10
--- NOTE | 2019-12-30 13:36 | RAD ---
MR#: [id number] Date of Study: 12/29/2019 Ordering Physician: DANIEL MARCOS, Referring Physician: DANIEL MARCOS, Tech: Tod Pham MBA, RDMS, RVT, RDCS, RTR APPROVED REPORT Patient Location : OUT-PATIENT Indications Lower Extremity Pain : Bilateral Findings Grayscale images of the bilateral saphenofemoral junctions are grossly unremarkable. The right great saphenous vein measures 3.7 mm and the left great saphenous vein measures 4.5 mm Bilateral greater and lesser saphenous veins do not show any evidence of reflux Critical Notification Critical Value: No <Conclusion> 1. Negative for reflux bilaterally. Signed by : Jeramy Romero, Electronically Approved : 12/29/2019 13:25:34
--- NOTE | 2019-12-30 13:36 | RAD ---
MR#: [id number] Date of Study: 12/29/2019 Ordering Physician: DANIEL MARCOS Referring Physician: HIRO REES Tech: RT Darlyn Levin) (N) APPROVED REPORT Test Type: Pharmacological Stress Nurse/Tech: Mario Garza RN Test Indications: Preop for shoulder surgery Cardiac History: See EMR. Medications: See EMR. Medical History: Smoker, See EMR. Resting ECG: SR Resting Heart Rate: 65 bpm Resting Blood Pressure: 118/70mmHg Pretest Chest Pain: No chest pain Nurse/Tech Notes Lungs CTA, Heart tones regular. Consent: The procedure was explained to the patient in lay terms. Informed consent was witnessed. Jose Enrique eout was entered into [employer]. History and Stress Test performed by RT Darlyn Levin) (N) Pharm. Details Pharmacologic stress testing was performed using 0.4mg per 5ml of regadenoson given intravenously ove r 7-10 seconds. Stress Symptoms No chest pain or symptoms. POST EXERCISE Reason for Termination: Infusion complete Max HR: 108 bpm Max Blood Pressure: 121/67mmHg Blood Pressure response to exercise: Normal blood pressure response during stress. Heart Rate response to exercise: WNL Chest Pain: No. Arrhythmia: No. ST Change: No. INTERPRETATION Stress EKG Conclusion: The resting EKG shows a sinus rhythm with ST T wave changes. The stress EKG shows no significant changes from baseline. No EKG evidence of stress induced ischemia. Imaging Protocol IMAGE PROTOCOL: Rest Tc-99m/stress Tc-99m 1 day Rest: Stress: Viability: Radiopharm.Tc99m SykstfqljHv21t Sestamibi Dose10.5mCi 30.5mCi Duration 15min. 15min. Img Date 12/29/2019 12/29/2019 Inj-Img Kfdf75dgz. 60min. Rest Admin Site:IV - Left HandAdministrator:RT Darlyn Levin)(N) Stress Admin Site: IV - Left HandAdministrator: RT Darlyn Schulte)(N) STRESS DATA End Diast. Vol.60.0mlAv. Heart Rate79.0bpm End Syst. Vol.12.0mlCO Index BSA0.0L/min Myocardial Jrag349.0gEject. Kokcwnlb98.0% Stress Rates Pk. Fill Rate3.64EDV/secLVtime Pk. Fill 179.91msec Pk. Empty Rate5.25ESV/secLVtime Pk. Uhldk120.46msec 1/3 Pk. Fill1.30EDV/sec Stress Scores Regional WT0.00Summed WT2.00 Regional WM0.00Summed WM1.00 LV Perfusion The stress images show no significant defects. The rest images show no significant defects. Nuclear imaging shows no reversible ischemia or infarct. Wall Motion Normal LV systolic function with an EF of greater that 70%. LV Perf. Quant 17 Seg. SSS6.00 17 Seg. SRS4.00 17 Seg. SDS3.00 Stress Defect Extent (% LAD)0.60Rest Defect Extent (% LAD)5.00Rev. Defect Extent (% LAD)0.00 Stress Defect Extent (% LCX) 16.30Rest Defect Extent (% LCX)3.80Rev. Defect Extent (% LCX)8.80 Stress Defect Extent (% RCA)0.00Rest Defect Extent (% RCA)0.00Rev. Defect Extent (% RCA)0.00 Stress Defect Extent (% SOPHIA)6.50Rest Defect Extent (% SOPHIA)4.80Rev. Defect Extent (% SOPHIA)2.40 Conclusion 1. No EKG evidence of stress induced ischemia. 2. Nuclear imaging shows no reversible ischemia or infarct. 3. Normal LV systolic function with an EF of greater than 70%. 4. Low risk nuclear stress test. Signed by : Ravinder Gr MD Electronically Approved : 12/29/2019 13:25:27
== END | disposition home or self-care (01) ==
LOC: NM 07:41
PROVIDERS: ATTEND Internal Medicine Cardiovascular Disease
DX: Z01.810 Encounter for preprocedural cardiovascular examination (principal); I70.203 Unspecified atherosclerosis of native arteries of extremities, bilateral legs; F17.200 Nicotine dependence, unspecified, uncomplicated
CPT/HCPCS: 78452; 93017; 93925; 93970; A9500; J2785

== ENCOUNTER → 2020-02-15 | Outpatient (CLI) | payer OTHER ==
[2019-09-22 09:22] VITALS: BP 125/68
[~2020-02-15] MED LIST changes: -REGADENOSON 0.4 MG/5 ML DISP.SYRIN. IV ONE
--- NOTE | 2020-02-15 10:25 | KCIC ---
Left shoulder 3 views: Reason for examination: Status post reverse left shoulder arthroplasty. There are postop changes from reverse total arthroplasty of the left shoulder. The components appear to be normally aligned. No acute abnormalities evident. 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 Electronically signed by: Belle Lopez MD (02/15/2020 10:22 AM) [email or web address]
== END | disposition home or self-care (01) ==
LOC: KCIC 08:59
PROVIDERS: ATTEND Physician Assistant
DX: Z96.612 Presence of left artificial shoulder joint (principal)
CPT/HCPCS: 73030

== ENCOUNTER → 2020-03-14 | Outpatient (CLI) | payer OTHER ==
[2019-09-22 09:22] VITALS: BP 125/68
--- NOTE | 2020-03-14 11:29 | CARD ---
MR#: [id number] Date of Study: 03/14/2020 Ordering Physician: DNAIEL MARCOS, Referring Physician: DANIEL MARCOS Tech: Nishi Hernandez RDCS APPROVED REPORT EXAM: Two-dimensional and M-mode echocardiogram with Doppler and color Doppler. Other Information Quality : Good INDICATION Pre-Op 2D DIMENSIONS RVDd2.3 (2.9-3.5cm)Left Atrium(2D)2.9 (1.6-4.0cm) IVSd0.9 (0.7-1.1cm)Aortic Root(2D)3.1 (2.0-3.7cm) LVDd4.0 (3.9-5.9cm)LVOT Diameter1.8 (1.8-2.4cm) PWd0.9 (0.7-1.1cm)LVDs2.5 (2.5-4.0cm) FS (%) 30.0 %SV50.0 ml LVEF(%)60.0 (>50%) Aortic Valve AoV Peak Brayden.172.8cm/sAoV VTI32.1cm AO Peak GR.11.9mmHgLVOT Peak Brayden.173.5cm/s AO Mean GR.7mmHgAVA (VMAX)2.60cm2 BASIM (VTI)2.90cm2 Mitral Valve MV E Bvkpfcfu92.0cm/sMV DECEL OWUD724pd MV A Ythwsdmt72.1cm/sE/A Ratio1.1 Tricuspid Valve TR P. Cpwxnlfg554pt/sRAP TRDIQGOR4zjDo TR Peak Gr.76sySlRMSX98veDt Pulmonary Vein S1 Oclcujwu37.3cm/sD2 Kpqbfjvg69.1cm/s LEFT VENTRICLE The left ventricle is normal size. There is normal left ventricular wall thickness. The left ventricu lar systolic function is normal. The Ejection Fraction is 55-60%. There is normal LV segmental wall m otion. RIGHT VENTRICLE The right ventricle is normal size. The right ventricular systolic function is normal. ATRIA The left atrium size is normal. The right atrium size is normal. The interatrial septum is intact wit h no evidence for an atrial septal defect or patent foramen ovale as noted on 2-D or Doppler imaging. AORTIC VALVE The aortic valve is mildly thickened but opens well. Doppler and Color Flow revealed no significant a ortic regurgitation. There is no significant aortic valvular stenosis. MITRAL VALVE The mitral valve is calcified but opens well. Mitral annular calcification is mild. There is no evide nce of mitral valve prolapse. There is no mitral valve stenosis. Doppler and Color-flow revealed trac e mitral regurgitation. TRICUSPID VALVE The tricuspid valve is normal in structure and function. Doppler and Color Flow revealed trace tricus pid regurgitation. The PA pressure was estimated at 29 mmHg. There is no tricuspid valve stenosis. PULMONIC VALVE The pulmonic valve is not well visualized. Doppler and Color Flow revealed trace pulmonic valvular re gurgitation. There is no pulmonic valvular stenosis. GREAT VESSELS The aortic root is normal in size. The ascending aorta is not well seen. The IVC is normal in size an d collapses >50% with inspiration. PERICARDIAL EFFUSION There is no evidence of significant pericardial effusion. Critical Notification Critical Value: No <Conclusion> The left ventricular systolic function is normal. The Ejection Fraction is 55-60%. There is normal LV segmental wall motion. Trace mitral regurgitation. Trace tricuspid regurgitation. The PA pressure was estimated at 29 mmHg. There is no evidence of significant pericardial effusion. Signed by : Daniel Marcos, Electronically Approved : 03/14/2020 11:29:34
== END | disposition home or self-care (01) ==
LOC: ECHO 07:47
PROVIDERS: ATTEND Internal Medicine Cardiovascular Disease
DX: Z01.810 Encounter for preprocedural cardiovascular examination (principal); I08.0 Rheumatic disorders of both mitral and aortic valves
CPT/HCPCS: 93306

== ENCOUNTER → 2021-03-16 | Outpatient (CLI) | payer MEDICARE, OTHER ==
[2020-11-05 07:00] VITALS: BP 102/63
[~2021-03-16] MED LIST changes: -ALEN70TA6 PO; +ALEN70TA71 PO; +CHOL2400 MC; +CITA20TA9 PO; +LACT1CAP19 PO; +OMEP20CA16 PO; +OXYB5TAB10 PO; +PRAV20TA2 PO; +TIOT18CA IH
--- NOTE | 2021-03-16 16:22 | RAD ---
CT LOW DOSE LUNG SCREEN INDICATION: low dose lung screen. 40+ smoker, 1 1/2 ppd, brother Hx of lung cancer COMPARISON STUDY: 10/16/2018. TECHNIQUE: Unenhanced axial images were obtained through the lungs and upper abdomen using low dose technique. Coronal and sagittal multiplanar reformatted images were also obtained. PQRS compliance statement: One or more of the following individualized dose reduction techniques were utilized for this examinat ion: 1. Automated exposure control 2. Adjustment of the mA and/or kV according to patient size 3. Use of iterative reconstruction technique FINDINGS: Lung Nodules: No suspicious pulmonary nodules. Lungs and Airways: No pulmonary mass or consolidation. Centrilobular emphysema. Normal central airway s. Pleura: Normal pleural spaces. Heart and Mediastinum: Stable thyroid isthmus nodule. No axillary or supraclavicular lymphadenopathy. No mediastinal, hilar or retrocrural lymphadenopathy. Normal cardiac size. Coronary artery atheroscl erotic disease. Atherosclerosis of the thoracic aorta. Abdomen: Cholecystectomy. Bones and Soft Tissues: New since 10/16/2018 but age-indeterminate T7 compression deformity with 50 pe rcent height loss and no osseous retropulsion. Degenerative changes of the spine. Bilateral shoulder arthroplasties. IMPRESSION: 1. No suspicious pulmonary nodules. Lung-RADS Category: 1 Management Recommendation: Follow up low-dose chest CT in one year. 2. New since 10/16/2018 but age-indeterminate T7 compression deformity with 50 percent height loss. Co rrelate for focal tenderness. If clinically warranted, MRI could be obtained to better evaluate chron icity. Electronically signed by: Jackson Brothers MD (03/16/2021 4:20 PM) [facility]
== END ==
LOC: CT 10:07
PROVIDERS: ATTEND Internal Medicine Pulmonary Disease
DX: Z12.2 Encounter for screening for malignant neoplasm of respiratory organs (principal); R91.1 Solitary pulmonary nodule; E04.1 Nontoxic single thyroid nodule
CPT/HCPCS: 71271

== ENCOUNTER → 2021-10-24 | Outpatient (CLI) | payer MEDICARE ==
[2020-11-05 07:00] VITALS: BP 102/63
--- NOTE | 2021-10-24 12:35 | RAD ---
MR#: [id number] Date of Study: 10/24/2021 Ordering Physician: DANIEL HESTER, Referring Physician: DANIEL HESTER, Tech: Tod Pham MBA, RDMS, RVT, RDCS, RTR APPROVED REPORT Patient Location: OUT-PATIENT Indications PAD Findings The right ankle-brachial index is normal at 1.3. The left ankle-brachial index was within normal mejias its at 1.2. Critical Notification Critical Value: No <Conclusion> Normal ankle brachial indices bilaterally suggesting lack of any significant peripheral artery stenos is. Signed by : Daniel Hester, Electronically Approved : 10/24/2021 12:34:56
--- NOTE | 2021-10-24 12:38 | RAD ---
MR#: [id number] Date of Study: 10/24/2021 Ordering Physician: DANIEL HESTER, Referring Physician: DANIEL HESTER, Tech: Tod Pham MBA, RDMS, RVT, RDCS, RTR APPROVED REPORT Patient Location: OUT-PATIENT Indications PAD VELOCITY AND DOPPLER WAVEFORM ANALYSIS RIGHT cm/secWaveformSeverity LEFT cm/secWaveform Severity dCFA 114.0TriphasicdCFA 90.0Triphasic Prof Fem Art. 65.0BiphasicProf Fem Art. 64.0Biphasic Fem Art Prox. 114.0TriphasicFem Art Prox. 109.0Triphasic Fem Art Mid. 98.0TriphasicFem Art Mid. 98.0Triphasic Fem Art Dist. 93.0TriphasicFem Art Dist. 52.0Triphasic Pop Art(Fossa) 65.0TriphasicPop Art(AK) 68.0Triphasic COTTAGE SUPERVISOR Prox. 70.0TriphasicPTA Prox. 111.0Triphasic COTTAGE SUPERVISOR Dist. 86.0TriphasicPTA Dist. 86.0Triphasic Per Art Mid. 41.0BiphasicPer Art Mid. 31.0Biphasic NICOL Prox. 58.0BiphasicATA Prox. 57.0Triphasic DPA 65BiphasicDPA 33Biphasic Findings Grayscale images of arteries and bilateral lower extremities showed mild diffuse atherosclerosis. Sp ectral waveform and color duplex analysis showed normal velocities with triphasic waveforms in common femoral, superficial femoral, deep femoral and popliteal arteries bilaterally. There is three-vesse l runoff below the knee bilaterally with biphasic waveforms. No flow-limiting stenosis was noted. Critical Notification Critical Value: No <Conclusion> Lower extremity arterial duplex scan did not show any significant peripheral artery stenosis. Signed by : Daniel Hester, Electronically Approved : 10/24/2021 12:37:34
--- NOTE | 2021-10-25 17:00 | CARD ---
MR#: [id number] Date of Study: 10/24/2021 Ordering Physician: DANIEL HESTER, Referring Physician: DANIEL HESTER, Tech: Rosmery Tapia [facility] APPROVED REPORT EXAM: Two-dimensional and M-mode echocardiogram with Doppler and color Doppler. Other Information Quality : AverageHR: 66bpm INDICATION COPD Dyspnea RISK FACTORS Hyperlipidemia Smoking 2D DIMENSIONS Left Atrium(2D)2.8 (1.6-4.0cm)IVSd0.8 (0.7-1.1cm) Aortic Root(2D)3.3 (2.0-3.7cm)LVDd4.5 (3.9-5.9cm) LVOT Diameter2.0 (1.8-2.4cm)PWd0.7 (0.7-1.1cm) LVDs2.9 (2.5-4.0cm)FS (%) 34.9 % SV60.5 mlLVEF(%)64.3 (>50%) Aortic Valve AoV Peak Brayden.164.5cm/sAoV VTI42.1cm AO Peak GR.10.8mmHgLVOT Peak Brayden.123.4cm/s AO Mean GR.7mmHgAVA (VMAX)2.32cm2 Mitral Valve MV E Uailwfmn93.0cm/sMV E Peak Gr.4mmHg MV DECEL [id number] A Qdebboeo18.3cm/s MV E Mean Gr.2mmHgE/A Ratio1.5 Tricuspid Valve TR P. Gawwbwxp063qb/sRAP PKQLIMYB5ecJi TR Peak Gr.45mzLjCLWN72xcOo LEFT VENTRICLE The left ventricle is normal size. There is normal left ventricular wall thickness. The left ventricu lar systolic function is normal. The Ejection Fraction is 55-60%. There is normal LV segmental wall m otion. The left ventricular diastolic function and filling is normal for age. RIGHT VENTRICLE The right ventricle is normal size. There is normal right ventricular wall thickness. The right ventr icular systolic function is normal. ATRIA The left atrium size is normal. The right atrium size is normal. The interatrial septum is intact wit h no evidence for an atrial septal defect or patent foramen ovale as noted on 2-D or Doppler imaging. AORTIC VALVE The aortic valve is normal in structure and function. Doppler and Color Flow revealed no significant aortic regurgitation. There is no significant aortic valvular stenosis. Calculated aortic valve area is 2.5 cm2 with maximum pressure gradient of 11 mmHg and mean pressure gradient of 5 mmHg. MITRAL VALVE The mitral valve is normal in structure and function. There is no evidence of mitral valve prolapse. There is no mitral valve stenosis. Doppler and Color-flow revealed trace to mild mitral regurgitation . TRICUSPID VALVE The tricuspid valve is normal in structure and function. Doppler and Color Flow revealed trace tricus pid regurgitation with an estimated PAP of 27 mmHg. There is no tricuspid valve stenosis. PULMONIC VALVE The pulmonic valve is not well visualized. Doppler and Color Flow revealed trace pulmonic valvular re gurgitation. GREAT VESSELS The aortic root is normal in size. The IVC is normal in size and collapses >50% with inspiration. PERICARDIAL EFFUSION There is no evidence of significant pericardial effusion. Critical Notification Critical Value: No <Conclusion> The left ventricular systolic function is normal. The Ejection Fraction is 55-60%. There is normal LV segmental wall motion. Trace to mild mitral regurgitation. Trace tricuspid regurgitation with an estimated PAP of 27 mmHg. There is no evidence of significant pericardial effusion. Signed by : Daniel Hester, Electronically Approved : 10/25/2021 17:00:11
== END ==
LOC: US 09:50
PROVIDERS: ATTEND Internal Medicine Cardiovascular Disease
DX: I73.9 Peripheral vascular disease, unspecified (principal); R06.09 Other forms of dyspnea
CPT/HCPCS: 93306; 93922; 93925